=== PATIENT | male | born 1995 | race Caucasian/White ===

== ENCOUNTER 2019-03-02 16:55 | Observation (INO) ==
--- NOTE | 2019-03-02 17:14 | Emergency Department Note ---
Disposition Clinical Impression: Cellulitis Qualifiers: Site of cellulitis: extremity Site of cellulitis of extremity: upper extremity Laterality: left Qualified Code(s): L03.114 - Cellulitis of left upper limb Disposition: Admitted As Inpatient Condition: Good Time of Disposition: 20:00 Skin/Abscess/FB HPI Chief complaint: ED Skin/Abscess/Foreign Body Stated complaint: possible infection to tattoo Source: patient, other ([facility] report) Mode of arrival: private vehicle Limitations: no limitations Nursing Notes Reviewed: Yes Vital Signs Reviewed: Yes HPI Narrative: Patient presents to the ED on referral from urgent care for pain, swelling and streaking redness on his left arm after getting a tattoo. Patient states his friend did the tattoo work around 9:00 this morning. He states he set up the equipment self and knows it was a new needle but states the ink was old. He states the tattoo work went fine but then around noon he started noticing swelling and redness around several areas of the tattoo that began to streak up his arm and he started having pain in the area that he rates 6-7 out of 10. Denies any fever or chills. He went to urgent care who then referred him here for further evaluation and IV antibiotics. States he has never had an infection or other problem with this with his tattoo work in the past. Denies any chronic medical problems. Does not take any routine medications. Home Medications Medication Instructions Recorded Confirmed No Known Home Drugs 03/02/19 03/02/19 Allergies Allergy/AdvReac Type Severity Reaction Status Date / Time No Known Allergies Allergy Verified 03/02/19 16:56 Constitutional: Denies: fever, chills, weakness, weight change Eyes: Denies: eye pain, eye discharge, vision change ENT ED: Denies: ear pain, throat pain, dental pain, hearing loss, epistaxis, congestion, dysphagia Cardiovascular: Denies: chest pain, palpitations, dyspnea on exertion, edema, syncope Respiratory: Denies: cough, dyspnea, wheezes, hemoptysis, stridor Gastrointestinal: Denies: abdominal pain, nausea, vomiting, diarrhea, constipation, hematemesis, melena, hematochezia Genitourinary: Denies: urgency, dysuria, frequency, hematuria Musculoskeletal: Denies: back pain, neck pain, arthralgia, myalgia Integumentary: Reports: as per HPI. Denies: rash, abrasion, lesions Neurological: Denies: headache, weakness, numbness, paresthesias, confusion, abnormal gait, vertigo Psychiatric: Denies: anxiety, depression, suicidal thoughts, homicidal thoughts, auditory hallucinations, visual hallucinations Endocrine: Denies: fatigue Hematological/Lymphatic: Denies: easy bleeding, easy bruising Allergic/Immunologic: Denies: facial swelling, urticaria Past Medical History - Past Medical History Medical history: Reports: no medical history Psychiatric history: Reports: no psych history - Social History Smoking Status: Current every day smoker Smokeless Tobacco Status: Yes Alcohol use: Reports: occasionally Drug use: Reports: none Physical Exam - General Limitations: no limitations General appearance: alert, in no apparent distress - Head Head exam: atraumatic, normocephalic, normal inspection - Eye Eye exam: Present: normal appearance, PERRL, EOMI - Chest Chest inspection: Present: normal inspection, symmetric chest wall rise - Respiratory Respiratory exam: Present: normal lung sounds bilaterally - Cardiovascular Cardiovascular exam: Present: regular rate, normal rhythm, normal heart sounds - Abdominal Exam Abdominal exam: Present: soft, Non-Tender. Absent: tenderness, distention, guarding, rebound, rigidity - Extremities Exam Extremities exam: Present: normal inspection, full ROM. Absent: tenderness, pedal edema - Expanded Upper Extremity Exam Shoulder exam: Present: normal inspection, full ROM Arm exam: Present: normal inspection, full ROM, erythema Elbow exam: Present: normal inspection, full ROM, erythema Forearm/Wrist exam: Present: swelling (Around fresh tattoo work on left medial forearm), erythema (Around fresh tattoo work on left medial forearm with streaks extending up to the axilla with associated warmth) Hand exam: Present: normal inspection, full ROM Neurosensory exam: Normal: radial nerve Vascular exam: Normal: capillary refill, radial pulse - Neurological Exam Neurological exam: Present: alert, oriented X3 - Psychiatric Psychiatric exam: Present: normal affect, normal mood - Skin Skin exam: Present: warm, dry, intact, normal color Course Course Narrative: Patient presents to the ED with pain, swelling and streaking redness of his left arm after having tattoo work performed by a friend. Symptoms are consistent with cellulitis and possibility of lymphadenitis. Will check lab work and start IV antibiotics. - Reevaluation(s) Reevaluation #1: Laboratory studies show a mild leukocytosis with left shift. Discussed with patient the need for admission and continued IV antibiotics and he reluctantly agreed. I spoke to the hospitalist on-call, Dr. Alberst who agreed to admit the patient. Vital Signs Temperature 98.2 F 03/02/19 16:58 Pulse Rate 107 03/02/19 16:58 Respiratory Rate 16 03/02/19 16:58 Blood Pressure 113/72 03/02/19 16:58 O2 Sat by Pulse Oximetry 95 03/02/19 16:58 Temperature 98.3 F 03/03/19 03:44 Pulse Rate 90 03/03/19 03:44 Respiratory Rate 16 03/03/19 03:44 Blood Pressure 97/54 03/03/19 03:44 O2 Sat by Pulse Oximetry 98 03/03/19 03:44 Oxygen Delivery Oxygen Delivery Room Air Skin/Abscess/Foreign Body - Differential Diagnosis Likely: cellulitis - Medical Records Medical records reviewed: Yes I reviewed the patient's medical records. - Lab Data Lab results reviewed: Yes I reviewed the patient's lab results. Result diagrams: 03/02/19 17:32 03/02/19 17:32 Lab Results 03/02/19 03/02/19 Range/Units 17:32 17:32 WBC 11.8 H (4.3-11.1) K/mcL RBC 4.80 (4.19-5.50) M/mcL Hgb 15.2 (12.9-16.9) g/dL Hct 43.0 (37.5-50.1) % MCV 89.6 (83.0-100.0) fL MCH 31.7 (28.0-33.3) pg MCHC 35.3 (31.6-35.5) g/dL RDW 11.8 (11.5-14.5) % Plt Count 186 (140-400) K/mcL MPV 11.5 (9.4-12.4) fL Immature Gran % 0.3 (0-4) % Seg Neutrophils % 78.1 % Lymphocytes % 13.7 % Monocytes % 6.4 % Eosinophils % 1.2 % Basophils % 0.3 % Neutrophils # 9.2 H (1.6-8.9) K/mcL Lymphocytes # 1.6 (0.6-4.6) K/mcL Monocytes # 0.8 (0.0-1.3) K/mcL Eosinophils # 0.1 (0.0-0.6) K/mcL Basophils # 0.0 (0.0-0.2) K/mcL Sodium 140 (136-145) mEq/L Potassium 3.4 L (3.5-5.1) mEq/L Chloride 101 (98-107) mEq/L Carbon Dioxide 27 (23-29) mEq/L BUN 13 (6-20) mg/dL Creatinine 1.28 (0.70-1.30) mg/dL Est GFR ( Amer) > 60 (> 60) Est GFR (Non-Af Amer) > 60 (> 60) BUN/Creatinine Ratio 10 (6-26) Glucose 87 (70-105) mg/dL Calculated Osmolality 289 (280-300) Calcium 9.4 (8.6-10.3) mg/dL
[2019-03-02] MEDS ORDERED: Clindamycin 600 MG/50 ML 600 MG/50 ML IV.SOLN IVPB ONE (17:23)
[2019-03-02 17:43] LABS: Basophils % 0.3 %; Eosinophils # 0.1 K/mcL (0.0-0.6); Eosinophils % 1.2 %; Hemoglobin 15.2 g/dL (12.9-16.9); Immature Granulocytes % 0.3 % (0-4); Lymphocytes # 1.6 K/mcL (0.6-4.6); Lymphocytes % 13.7 %; Mean Corpuscular HGB Conc 35.3 g/dL (31.6-35.5); Mean Corpuscular Hemoglobin 31.7 pg (28.0-33.3); Mean Corpuscular Volume 89.6 fL (83.0-100.0); Mean Platelet Volume 11.5 fL (9.4-12.4); Monocytes # 0.8 K/mcL (0.0-1.3); Monocytes % 6.4 %; Neutrophils # 9.2 K/mcL (1.6-8.9); Platelet Count 186 K/mcL (140-400); Red Cell Distribution Width 11.8 % (11.5-14.5); Segmented Neutrophils % 78.1 %; White Blood Count 11.8 K/mcL (4.3-11.1)
[2019-03-02 17:58] LABS: BUN/Creatinine Ratio 10 (6-26); Blood Urea Nitrogen 13 mg/dL (6-20); Calcium 9.4 mg/dL (8.6-10.3); Carbon Dioxide 27 mEq/L (23-29); Chloride 101 mEq/L (98-107); Glucose 87 mg/dL (70-105); Osmolality,Calculated 289 (280-300); Potassium 3.4 mEq/L (3.5-5.1); Sodium 140 mEq/L (136-145); eGFR For African Americans > 60 (> 60); eGFR For Non-African Americans > 60 (> 60)
[2019-03-02] MEDS ORDERED: Naloxone 0.4 MG/ML INJ IVP PRN ×2 (20:03→20:29)
[2019-03-02] MEDS ORDERED: Clindamycin 600 MG/50 ML 600 MG/50 ML IV.SOLN IVPB SCH (21:00)
[2019-03-03] MEDS: Acetaminophen 325 MG TABLET PO PRN ×3 (00:51→20:09)
[2019-03-03] MEDS: Clindamycin 600 MG/50 ML 600 MG/50 ML IV.SOLN IVPB SCH ×3 (00:57→15:52)
[2019-03-03 06:46] LABS: Basophils % 0.4 %; Eosinophils # 0.2 K/mcL (0.0-0.6); Hematocrit 41.5 % (37.5-50.1); Hemoglobin 14.2 g/dL (12.9-16.9); Immature Granulocytes % 0.2 % (0-4); Lymphocytes # 0.9 K/mcL (0.6-4.6); Lymphocytes % 8.8 %; Mean Corpuscular HGB Conc 34.2 g/dL (31.6-35.5); Mean Corpuscular Hemoglobin 31.2 pg (28.0-33.3); Mean Corpuscular Volume 91.2 fL (83.0-100.0); Mean Platelet Volume 11.2 fL (9.4-12.4); Monocytes # 0.7 K/mcL (0.0-1.3); Neutrophils # 8.4 K/mcL (1.6-8.9); Platelet Count 154 K/mcL (140-400); Red Blood Count 4.55 M/mcL (4.19-5.50); Red Cell Distribution Width 11.8 % (11.5-14.5); Segmented Neutrophils % 81.6 %; White Blood Count 10.3 K/mcL (4.3-11.1)
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
[2019-03-03] MEDS: traMADol 50 MG TABLET PO PRN ×3 (10:18→20:09)
[2019-03-03 16:20] LABS: Amphetamine Screen,Urine Positive ng/mL (Cutoff=1000); Barbiturate Screen,Urine Negative ng/mL (Cutoff=200); Benzodiazepines Screen,Urine Negative ng/mL (Cutoff=200); Cannabinoid Screen,Urine Negative ng/mL (Cutoff = 50); Cocaine Screen,Urine Negative ng/mL (Cutoff= 300); Opiate Screen,Urine Negative ng/mL (Cutoff=300); Phencyclidine Screen,Urine Negative ng/mL (Cutoff=25)
[2019-03-03] MEDS: Lactobacillus 1 EACH CAP.SPRINK PO SCH (20:09)
[2019-03-04] MEDS: Clindamycin 600 MG/50 ML 600 MG/50 ML IV.SOLN IVPB SCH ×2 (00:14→08:02)
[2019-03-04 06:17] LABS: Basophils % 0.5 %; Eosinophils # 0.3 K/mcL (0.0-0.6); Hemoglobin 15.2 g/dL (12.9-16.9); Immature Granulocytes % 0.1 % (0-4); Lymphocytes # 1.3 K/mcL (0.6-4.6); Lymphocytes % 17.6 %; Mean Corpuscular HGB Conc 34.5 g/dL (31.6-35.5); Mean Corpuscular Hemoglobin 31.3 pg (28.0-33.3); Mean Corpuscular Volume 90.5 fL (83.0-100.0); Mean Platelet Volume 11.3 fL (9.4-12.4); Monocytes # 0.6 K/mcL (0.0-1.3); Neutrophils # 5.2 K/mcL (1.6-8.9); Platelet Count 149 K/mcL (140-400); Red Blood Count 4.86 M/mcL (4.19-5.50); Red Cell Distribution Width 11.9 % (11.5-14.5); Segmented Neutrophils % 69.8 %; White Blood Count 7.5 K/mcL (4.3-11.1)
[2019-03-04 06:54] LABS: Alanine Aminotransferase 11 Units/L (7-52); Albumin 4.2 g/dL (3.5-5.7); Albumin/Globulin Ratio 1.9 (1.1-2.2); Alkaline Phosphatase 42 Units/L (34-104); Aspartate Amino Transferase 12 Units/L (13-39); BUN/Creatinine Ratio 9 (6-26); Bilirubin,Total 0.3 mg/dL (0.3-1.0); Blood Urea Nitrogen 10 mg/dL (6-20); Calcium 9.3 mg/dL (8.6-10.3); Carbon Dioxide 27 mEq/L (23-29); Chloride 103 mEq/L (98-107); Globulin 2.2 g/dL (2.4-3.5); Glucose 102 mg/dL (70-105); Osmolality,Calculated 281 (280-300); Potassium 4.1 mEq/L (3.5-5.1); Sodium 136 mEq/L (136-145); Total Protein 6.4 g/dL (6.4-8.9); eGFR For African Americans > 60 (> 60); eGFR For Non-African Americans > 60 (> 60)
[2019-03-04 07:19] VITALS: BP 96/64
[2019-03-04] MEDS: traMADol 50 MG TABLET PO PRN (08:02)
[2019-03-04] MEDS: Lactobacillus 1 EACH CAP.SPRINK PO SCH (08:02)
--- NOTE | 2019-03-04 09:19 | Discharge Summary ---
- NOTES TO OUTPATIENT PROVIDER Notes to Outpatient Provider: Blood cultures pending at time of discharge. Orders not resulted at time of discharge: Pending orders 03/02/19 17:32 Culture,Blood [BC] Stat Date of Encounter: 03/04/19 Time of Encounter: 09:16 - Discharge Diagnosis (1) Cellulitis Priority: Primary Status: Acute Comments: Pt with resolving LUE cellulitis which began after receiving an unprofessional tattoo of left arm. Symptomatically improved with IV antibiotics. Will convert to oral antibiotic regimen to complete a 10 day course. Arm elevation and monitoring recommended. He has been advised to establish a PCP and f/u within 1 week. Qualifiers: Site of cellulitis: extremity Site of cellulitis of extremity: upper extremity Laterality: left Qualified Code(s): L03.114 - Cellulitis of left upper limb Hospital course: Mr. Zarco is a 23 year old male that was directed to ED by urgent care for redness, warmth and swelling of left forearm that began after having a tattoo unprofessionally placed to his arm. Labs and blood cultures drawn. Pt admitted on IV clindamycin and subsequently improved. He was afebrile, ambulating and tolerating regular diet. Patient reported 80% improvement with IV antibiotics and eager for discharge home. Antibiotics converted to oral to complete a 10 day course. Blood cultures pending at time of discharge. Pt advised to arrange a PCP. Discharge discussed with: patient - Time Spent with Patient Total time spent providing and/or coordinating discharge services: Time spent: Less than 30 minutes - Discharge Medications Prescriptions: New Clindamycin HCl 300 mg PO Q8H 8 Days #24 capsule Lactobacillus [Culturelle] 1 each PO BID #60 [email or web address] Home Medications: Clindamycin HCl 300 mg PO Q8H 8 Days #24 capsule 03/04/19 [Rx] Lactobacillus [Culturelle] 1 each PO BID #60 cap.[email or web address] 03/04/19 [Rx] Allergies/Adverse Reactions: Allergy/AdvReac Type Severity Reaction Status Date / Time No Known Allergies Allergy Verified 03/02/19 16:56 Date of admission: 03/02/19 20:25 Primary care physician: Jerome Hairston MD Consults: None Discharging clinician: Jesse Mayes Anticipated date of discharge: 03/04/19 - Constitutional Vitals: Temp Pulse Resp BP Pulse Ox 97.7 F 87 18 96/64 96 03/04/19 07:00 03/04/19 07:00 03/04/19 07:00 03/04/19 07:00 03/04/19 07:00 Exam: Gen: Lying in bed, NAD HEENT: NC, AT Neck: Trachea midline, no mass Pulm: No respiratory distress, CTAB CV: Normal S1 and S2, RRR Abdomen: Soft, ND, NT Neuro: No appreciable motor/sensor deficits Skin: approx 6x10cm erythematous patch without crepitus or induration noted involving flexor aspect of left forearm Psych: A&Ox3 - Patient Status Disposition: Home, Self-Care Condition: Good Functional capacity at discharge: independent ambulation Overall status at discharge: patient is progressing back to baseline - Discharge Instructions Follow Up With: Jerome Hairston MD [Primary Care Provider] - 1 week - Diet and Activity Activity: increase activity as tolerated Diet: advance to your usual diet - VTE Reasons for not Prescribing Prophylaxis: Treatment not Indicated - Low risk for VTE
== END 2019-03-04 11:15 | disposition home or self-care (01) ==
LOC: INPPIK 16:55 → EMEROOPIK 16:55 → INPPIK 20:45
PROVIDERS: ADMIT Internal Medicine; ATTEND Internal Medicine